=== PATIENT | female | born 1985 | race Caucasian/White ===

== ENCOUNTER 2020-08-21 15:51 | Emergency (ER) | payer OTHER ==
[~2020-08-21] VITALS: Ht 152.4 cm; Wt 63.5 kg
[~2020-08-21 15:51] MED LIST: ACETAMINOPHEN325 M1; APAP500; FLEXERIL PO; IBUPROFEN 800800 M1; NORCO 5-325 TA1 EACH; PRENATAL PO; SIMETHICON CHEW80 M1
[2020-08-21] MEDS ORDERED: GLUCOPHAGE1000 MG PO (16:04)
[2020-08-21] MEDS ORDERED: SPIRONOLACTONE100 M1 PO (16:04)
[2020-08-21] MEDS ORDERED: HYDROCODON-ACE1 EAC7 PO (19:40)
[2020-08-21 19:56] VITALS: BP 124/70
== END 2020-08-21 19:56 | disposition home or self-care (01) ==
LOC: M.ERS 15:51
DX: S70.12XA Contusion of left thigh, initial encounter (principal); Z98.890 Other specified postprocedural states; Z90.710 Acquired absence of both cervix and uterus; W10.8XXA Fall (on) (from) other stairs and steps, initial encounter; Y93.89 Activity, other specified; Y92.89 Other specified places as the place of occurrence of the external cause; Y99.8 Other external cause status